=== PATIENT | male | born 1955 | race Caucasian/White ===

== ENCOUNTER 2024-08-13 18:40 | Emergency (ER) | payer MEDICARE ==
[~2024-08-13] VITALS: Ht 182.9 cm; Wt 76.3 kg
[2024-08-13 18:45] VITALS: TEMP 96.8
--- NOTE | 2024-08-13 19:21 | Physician Documentation ---
History of Present Illness ~ Chief Complaint: Head Injury Stated Complaint: FELL AND HIT HEAD Time Seen by MD: 19:21 OK to notify your PCP?: Yes HPI 69-year-old male who presents with a head injury He tells me that he actually fell 2 days ago, tripped while he was working and hit his head on the concrete. No significant loss of consciousness. He had an abrasion to his forehead. No other significant injuries. Over the past 2 days he has had a mild headache, initially had some blurriness to his eyes, and has felt more fatigued than normal. No nausea or vomiting. No tingling numbness or weakness to the extremities. He took ibuprofen for his headache. He is not on anticoagulation. Medication Reconciliation Allergies: Coded Allergies: No Known Allergies (Unverified , 08/13/24) Review of Systems Neurological: Reports: headache; Denies: dizziness, left sided numbness, right sided numbness Physical Exam Vital Signs: Temperature: 96.8, Source: Temporal, Heart Rate: 60, Respiratory Rate: 15, BP: 146/65, Pulse Oximetry: 99, Weight: 76.300 Physical Exam General: This is a pleasant and healthy appearing older man, daughter at bedside HEENT: Superficial abrasion to the left forehead, without large laceration, no other trauma to the scalp Neck: No midline tenderness on palpation of the C-spine, full range of motion without pain Heart: Regular rate and rhythm, normal-appearing peripheral perfusion Lungs: normal work of breathing, normal oxygen saturation on room air Extremities: Warm and well-perfused, full range of motion without significant pain or limitation Neuro: Alert and oriented, no focal deficits Psychiatric: Calm and cooperative with exam Progress Results/Orders Results/Orders Vital Signs 08/13/24 08/13/24 08/13/24 08/13/24 18:45 19:21 19:21 20:19 Temp 96.8 Pulse 60 60 60 Resp 15 16 16 B/P (MAP) 146/65 120/82 (95) 135/79 Pulse Ox 99 97 96 O2 Flow Rate 0 EKG/XRAY/CT/US/VASC/MRI CT : Impression I personally reviewed the CT scan, and this shows no fracture, no intracranial hemorrhage, no mass Medical Decision Making Additional info obtained from: family Differential Dx:Considerations: Include: Closed head injury, Cervical spine injury, Skull facture, Contusion Additional Comment Differential includes intracranial hemorrhage, concussion Assessment 69-year-old man presenting with a fall and head injury [address] shows no fracture or intracranial hemorrhage. Overall his presentation is cons istent with a concussion with mild postconcussion syndrome. No other dangerous medical or surgical emergency identified. He was given home care instructions and follow-up information. Departure Time of Disposition: 20:03 Disposition: 01 HOME / SELF CARE / HOMELESS Impression: Primary Impression: Concussion Condition: Stable Discharge Instructions: Post Concussion Syndrome,Adult Referrals: NO PRIMARY CARE PROVIDER (PCP) Comments The CT scan did not show any broken bones or bleeding or on your brain Education Educated: Patient, Family Educated regarding: diagnosis, treatment, need for follow up Signature Scribe Signature: césar Attestation: TANIA Restrepo MD Aug 13, 2024 19:21
--- NOTE | 2024-08-13 19:54 | RADIOLOGY REPORT ---
Clinical History fall, headache, lac to left side of forehead Comparison None Technique: Contiguous axial CT images of the head without intravenous contrast administration. Coron al and sagittal reformation was performed. All CT scans at this medical facility are performed using dose modulation techniques as appropriate t o a performed exam including the following: Automated exposure control was utilized; adjustment of th e mA and/or kV according to patient size; and use of iterative reconstruction technique. All CT studies are reported to the Dose Index Registry of the [employer]. Without Contrast Radiation Dose: CTDI (mGy): 61.56; DLP (mGy-cm): 1161.17 EMERSONDEBBIE, [id number] Findings: The brain parenchyma shows normal donaldson-white matter differentiation without any mass, bleed, edema, o r herniation. The sulci, cisterns, and ventricles are intact. No extra-axial fluid collection or sk ull lesion is present. The imaged portions of the paranasal sinuses and mastoid air cells are clear. Both orbits are grossl y normal. Impression: 1. No acute intracranial abnormality. This report was electronically signed by Tommy Valladares MD on 08/13/2024 7:50:59 PM.
[2024-08-13 20:19] VITALS: BP 135/79; PULSE 60; RESP 16; O2SAT 96
== END 2024-08-13 20:20 | disposition home or self-care (01) ==
LOC: ER 18:41
DX: S06.0X0A Concussion without loss of consciousness, initial encounter (principal); X58.XXXA Exposure to other specified factors, initial encounter; Y93.89 Activity, other specified; Y92.89 Other specified places as the place of occurrence of the external cause; Y99.8 Other external cause status
CPT/HCPCS: 70450; 99284